=== PATIENT | female | born 1945 | race Caucasian/White ===

== ENCOUNTER → 2017-04-22 | Outpatient (REF) | payer MEDICARE, OTHER | LOC: M LAB REF 17:54 | PROVIDERS: ATTEND Internal Medicine Medical Oncology | DX: C50.919 Malignant neoplasm of unspecified site of unspecified female breast (principal) ==

== ENCOUNTER 2019-05-11 11:31 | Emergency (ER) | payer MEDICARE, OTHER ==
[~2019-05-11] VITALS: Ht 152.4 cm; Wt 75.5 kg
[~2019-05-11 11:31] MED LIST: ASPI81TA26 PO; FENO145T13 PO; OSTETAB3 PO; PHEN-239 PO; SYNT100T PO
[2019-05-11] MEDS ORDERED: METOCLOPRAMIDE INJ 10MG/2ML VIAL (J2765) IV ONE (12:00)
[2019-05-11] MEDS ORDERED: NS 1,000 ML IV ONE (12:00)
[2019-05-11] MEDS ORDERED: MECLIZINE 25 MG TABLET PO ONE (12:00)
[2019-05-11 12:04] LABS: BASO % 0.7 % (0.0-1.0); EOS # 0.1 10^3/uL (0.0-0.5); EOS % 3.1 % (0.0-3.0); HEMATOCRIT 40.9 % (36.0-47.0); LYMPH % 24.5 % (24.0-44.0); MEAN CORPUSCULAR HEMOGLOBIN 30.2 pg (27.0-33.0); MEAN CORPUSCULAR HGB CONC 31.8 g/dl (32.0-36.5); MEAN CORPUSCULAR VOLUME 95.1 fl (80.0-96.0); MONO # 0.4 10^3/uL (0.0-0.8); MONO % 8.4 % (0.0-5.0); NEUTROPHILS # 2.6 10^3/uL (1.5-8.5); NEUTROPHILS % 62.8 % (36.0-66.0); PLATELET COUNT, AUTOMATED 251 10^3/uL (150-450); WHITE BLOOD COUNT 4.2 10^3/uL (4.0-10.0)
[2019-05-11 12:35] LABS: ALBUMIN 3.6 GM/DL (3.2-5.2); ALT/SGPT 23 U/L (12-78); BILIRUBIN,TOTAL 0.4 MG/DL (0.2-1.0); BLOOD UREA NITROGEN 26 MG/DL (7-18); CALCIUM LEVEL 8.9 MG/DL (8.8-10.2); CARBON DIOXIDE LEVEL 26 MEQ/L (21-32); CHLORIDE LEVEL 111 MEQ/L (98-107); CK-MB VALUE MASS 2.3 NG/ML (<3.6); CPK CREATINE PHOSPHOKINASE 110 U/L (26-192); CREATININE FOR GFR 0.88 MG/DL (0.55-1.30); GLOMERULAR FILTRATION RATE > 60.0 (>39); GLUCOSE, FASTING 87 MG/DL (70-100); MB/CK RELATIVE INDEX 2.09 (< OR =4); POTASSIUM SERUM 4.3 MEQ/L (3.5-5.1); SODIUM LEVEL 143 MEQ/L (136-145); TOTAL PROTEIN 6.3 GM/DL (6.4-8.2); TROPONIN I < 0.02 NG/ML (< 0.10)
--- NOTE | 2019-05-11 12:38 | REP ---
CT brain: 05/11/2019. Indication: Vertigo. Comparison: None. Technique: Unenhanced CT images of the brain were obtained from skull base to vertex. Findings: There is no acute intracranial hemorrhage, acute cortical infarction, mass effect, hydrocephalus or significant fluid within the visualized paranasal sinuses/mastoid air cells. Chronic right lamina papyracea deformity is noted. Impression: No acute intracranial process. Electronically Signed by Morgan Arias DO 05/11/2019 12:30 P
--- NOTE | 2019-05-11 12:42 | REP ---
Portable chest x-ray: Single view. History: Pre syncope. Comparison study: December 02, 2007. Findings: EKG monitoring electrodes are seen. The lungs are symmetrically aerated and clear. There are surgical clips in right axillary soft tissues. The patient is status post bilateral mastectomy. Pleural angles are sharp. Heart is not felt to be enlarged. Pulmonary vasculature is not increased. No bony destructive lesion is seen. Impression: Status post bilateral mastectomy. No active cardiopulmonary disease. Electronically Signed by John Tai MD 05/11/2019 12:34 P
[2019-05-11 14:28] VITALS: BP 147/67
[2019-05-11] MEDS ORDERED: NS 500 ML IV ONE (15:00)
[2019-05-11] MEDS ORDERED: REGL5TAB2 PO (16:18)
[2019-05-11] MEDS ORDERED: MECL-86 PO (16:18)
--- NOTE | 2019-05-11 23:22 | ECGEPIP ---
[facility] - ED Test Date: 2019-05-11 Pat Name: JULIETH OLIVAS Department: Room: - Gender: Female [employer]: greg moralez : 1945 Requested By: FERNANDO Viera Order Number: [id number] Reading MD: Roverto Caldera Measurements Intervals Seltzer Rate: 54 P: 34 ME: 157 QRS: -1 QRSD: 105 T: 156 QT: 460 QTc: 439 Interpretive Statements SINUS BRADYCARDIA WITH FREQUENT VENTRICULAR PREMATURE COMPLEXES NSTTW ABNORMALITIES NO PRIORS FOR COMPARISON Electronically Signed on 05-11-2019 23:21:56 EST by Roverto Caldera
== END 2019-05-11 16:38 | disposition home or self-care (01) ==
LOC: M ED 11:31
DX: R42 Dizziness and giddiness (principal); I95.1 Orthostatic hypotension; R00.1 Bradycardia, unspecified; Z85.3 Personal history of malignant neoplasm of breast; Z90.13 Acquired absence of bilateral breasts and nipples; Z79.899 Other long term (current) drug therapy; Z91.89 Other specified personal risk factors, not elsewhere classified; Z88.5 Allergy status to narcotic agent; Z88.8 Allergy status to other drugs, medicaments and biological substances
CPT/HCPCS: 36415; 70450; 71045; 80053; 82550; 82553; 84443; 84484; 85025; 93005; 99285; G0463; J2765

== ENCOUNTER → 2024-02-25 | Outpatient (REF) | payer MEDICARE, BC ==
[~2024-02-25] MED LIST changes: -FENO145T13 PO; +FENO145T7 PO; +MECL-86 PO; +REGL5TAB2 PO
[2024-02-25 18:42] LABS: AMORPHOUS SEDIMENT SMALL (NEGATIVE); APPEARANCE, URINE TURBID (CLEAR); BACTERIA, URINE AUTO NEGATIVE (NEGATIVE); BILIRUBIN, URINE AUTO NEGATIVE (NEGATIVE); BLOOD, URINE BLOOD NEGATIVE (NEGATIVE); CALCIUM OXALATE CRYSTALS LARGE; COLOR, URINE AMBER (YELLOW); GLUCOSE, URINE (UA) AUTO NEGATIVE (NEGATIVE); KETONE, URINE AUTO NEGATIVE (NEGATIVE); LEUKOCYTE ESTERASE, URINE AUTO 3+ (NEGATIVE); MUCUS, URINE SMALL (NEGATIVE); NITRITE, URINE AUTO NEGATIVE (NEGATIVE); PROTEIN, URINE AUTO NEGATIVE (NEGATIVE); RBC, URINE AUTO 1 /HPF (0-3); SPECIFIC GRAVITY URINE AUTO 1.025 (1.002-1.035); SQUAMOUS EPITHELIAL CELL UR AU 2 /HPF (0-6); UROBILINOGEN, URINE AUTO 0.2 mg/dL (0.0-2.0); WBC, URINE AUTO 27 /HPF (0-3)
== END ==
LOC: M SMT 17:26
PROVIDERS: ATTEND Specialist
DX: N32.9 Bladder disorder, unspecified (principal); Z79.899 Other long term (current) drug therapy

== ENCOUNTER → 2024-10-07 | Outpatient (REF) | payer MEDICARE, BC ==
[2024-10-07 17:49] LABS: APPEARANCE, URINE CLEAR (CLEAR); BACTERIA, URINE AUTO NEGATIVE (NEGATIVE); BILIRUBIN, URINE AUTO NEGATIVE (NEGATIVE); BLOOD, URINE BLOOD NEGATIVE (NEGATIVE); COLOR, URINE YELLOW (YELLOW); GLUCOSE, URINE (UA) AUTO NEGATIVE (NEGATIVE); KETONE, URINE AUTO NEGATIVE (NEGATIVE); LEUKOCYTE ESTERASE, URINE AUTO 2+ (NEGATIVE); MUCUS, URINE SMALL (NEGATIVE); NITRITE, URINE AUTO NEGATIVE (NEGATIVE); PROTEIN, URINE AUTO NEGATIVE (NEGATIVE); RBC, URINE AUTO 1 /HPF (0-3); SPECIFIC GRAVITY URINE AUTO 1.025 (1.002-1.035); SQUAMOUS EPITHELIAL CELL UR AU 2 /HPF (0-6); UROBILINOGEN, URINE AUTO 0.2 mg/dL (0.0-2.0); WBC, URINE AUTO 6 /HPF (0-3)
[2024-10-09 11:57] LABS: BVAB 2 POSITIVE (NEGATIVE); CANDIDA ALBICANS NAA NOT DETECTED (NOT DETECTED); CANDIDA GLABRATA NAA DETECTED (NOT DETECTED); TRICH VAG BY NAA NOT DETECTED (NOT DETECTED)
[2024-10-09 13:03] LABS: CHLAMYDIA TRACHOMATIS NAA NOT DETECTED (NOT DETECTED); Neisseria gonorrhoeae NAA NOT DETECTED (NOT DETECTED)
== END ==
LOC: M SMT 17:01
PROVIDERS: ATTEND Specialist
DX: N39.0 Urinary tract infection, site not specified (principal); N76.0 Acute vaginitis; Z11.3 Encounter for screening for infections with a predominantly sexual mode of transmission; Z72.89 Other problems related to lifestyle